=== PATIENT | female | born 1950 | race Caucasian/White ===

== ENCOUNTER 2018-09-06 02:30 | Emergency (ER) | payer OTHER ==
--- OUTSIDE RECORDS SUMMARY | 2018-09-06 02:32 | XMS REPORT ---
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 Problem Sciatica of left side M54.32 Active Problem Sciatica, right side M54.31 Active Problem Unilateral primary osteoarthritis, M17.11 Active right knee Problem Pain, joint, knee, left M25.562 Active Problem Pain, joint, knee, right M25.561 Active Medications Medication Code Code Instructions Start End Status Dosage System Date Date Azelastine HCl [facility] 80036771211 0.1 % Nasal Active not defined Multivitamin [facility] 23232214373 - Orally Active as directed Sucralfate [facility] 74459739197 1 GM Oral Active not defined Bevespi Aerosphere [facility] 87316414930 9-4.8 MCG/ACT Active not Inhalation defined potassium NDC 0 Active not defined Cranberry Soft [facility] 47835-46544 Active not defined Calion Oil [facility] 84757-05929 Active not defined Kfopfgvrid-ZEWT-Hl [facility] 81209459864 50-325-40 MG Active 1 tablet ffeine Orally every 4 as needed hrs Theophylline ER ND 16992699032 300 MG Oral Active not defined Vitamin B Complex [facility] 22424860228 - Orally Active as directed Probiotic [facility] 24993-51304 Active not defined Magnesium NDC 0 Active not defined Vitamin D-3 [facility] 27637-41224 Active not defined Lutein [facility] 37715-97918 Active not defined Atorvastatin [facility] 66383791971 10 MG Oral Active not Calcium defined Levocetirizine [facility] 53467862149 5 MG Oral Active not Dihydrochloride defined Resveratrol [facility] 0 Active not defined Milk Thistle [facility] 87655-90546 Active not defined Triamterene-HCTZ [facility] 20664628888 75-50 MG Oral Active not defined Esomeprazole [facility] 21691441825 40 MG Oral Active not Magnesium defined Fish Oil [facility] [address]-85 Active not defined Calcium Citrate [facility] 94515-04393 Active not defined Garlic-Parsley [facility] 87287-52410 Active not defined Calcium Carbonate [facility] 44061-47297 Active not defined Levalbuterol [facility] 84344269816 45 MCG/ACT Active not Tartrate Inhalation defined Zinc [facility] 05756-83867 Active not defined Vitamin C [facility] 60281-62899 Active not defined Vitamin B 12 [facility] 72495982670 250 MCG Orally Active as directed Co Q 10 [facility] 16534-17860 Active not defined Results No Known Results Summary Purpose eClinicalWorks Submission
--- OUTSIDE RECORDS SUMMARY | 2018-09-06 02:32 | XMS REPORT ---
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 Assessment Unilateral primary osteoarthritis, M17.11 Active right knee Assessment Sciatica, right side M54.31 Active Assessment Pain, joint, knee, right M25.561 Active Problem Unilateral primary osteoarthritis, 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 Problem Sciatica of left side M54.32 Active Problem Sciatica, right side M54.31 Active Problem Unilateral primary osteoarthritis, M17.11 Active right knee Problem Pain, joint, knee, left M25.562 Active Problem Pain, joint, knee, right M25.561 Active Medications Medication Code Code Instructions Start End Status Dosage System Date Date Milk Thistle [facility] [address]86-80659 Active not defined [place] Oil [facility] 85472-59637 Active not defined Cranberry Soft [facility] 51671-32977 Active not defined Vitamin D-3 [facility] 27626-60711 Active not defined Atorvastatin [facility] 45911990340 10 MG Oral Active not Calcium defined Calcium Citrate [facility] 70515-06530 Active not defined Vitamin B 12 [facility] 40034794674 250 MCG Orally Active as directed Resveratrol ND 0 Active not defined Zinc [facility] 66807-45328 Active not defined Triamterene-HCTZ [facility] 21931203078 75-50 MG Oral Active not defined Sucralfate [facility] 63330700448 1 GM Oral Active not defined Levocetirizine [facility] 53549872667 5 MG Oral Active not Dihydrochloride defined Calcium Carbonate [facility] 05015-13128 Active not defined Vitamin B Complex [facility] 02888009776 - Orally Active as directed Fish Oil [facility] [address]-71 Active not defined Garlic-Parsley [facility] 25996-71572 Active not defined potassium ND 0 Active not defined Multivitamin [facility] 01226814206 - Orally Active as directed Co Q 10 [facility] 86208-24366 Active not defined Lutein [facility] 54224-06970 Active not defined Vitamin C [facility] 36[address]-12259 Active not defined Bevespi Aerosphere [facility] 29395453536 9-4.8 MCG/ACT Active not Inhalation defined Probiotic [facility] 43528-28522 Active not defined Theophylline ER [facility] 32547212358 300 MG Oral Active not defined Magnesium ND 0 Active not defined Toxqfrtpob-GUYD-Fv [facility] 32176951983 50-325-40 MG Active 1 tablet ffeine Orally every 4 as needed hrs Levalbuterol [facility] 23264194702 45 MCG/ACT Active not Tartrate Inhalation defined Esomeprazole [facility] 60384649823 40 MG Oral Active not Magnesium defined Azelastine HCl [facility] 40527193882 0.1 % Nasal Active not defined Results No Known Results Summary Purpose eClinicalWorks Submission
--- OUTSIDE RECORDS SUMMARY | 2018-09-06 02:32 | XMS REPORT ---
:1950 [facility] Address [address] [place] [address] [address] [place] [address] Care Team Providers Name Role Phone Unavailable Unavailable Unavailable Problems This patient has no known problems. Allergies, Adverse Reactions, Alerts This patient has no known allergies or adverse reactions. Medications This patient has no known medications.
--- OUTSIDE RECORDS SUMMARY | 2018-09-06 02:33 | XMS REPORT ---
:1950 [facility] Team Providers Name Role Phone [...] Start End Status Dosage System Date Date Multivitamin [facility] 71682100946 - Orally Active as directed Vitamin B Complex [facility] 80036559994 - Orally Active as directed Sucralfate [facility] 26659919308 1 GM Oral Active not defined Levocetirizine [facility] 99913017312 5 MG Oral Active not Dihydrochloride defined Cranberry Soft [facility] 954[address]-89976 Active not defined Fish Oil [facility] [address]-54 Active not defined Resveratrol NDC 0 Active not defined Vitamin B 12 [facility] 56420101163 250 MCG Orally Active as directed Triamterene-HCTZ ND 09425531184 75-50 MG Oral Active not defined Probiotic [facility] 9[address]-98583 Active not defined potassium NDC 0 [place] [address] Active not defined Madeline Oil [facility] 95877-52243 Active not defined Milk Thistle [facility] 51666-14984 Active not defined Azelastine HCl [facility] 84337419897 0.1 % Nasal Active not defined Wedpwzrffi-IISI-Dr [facility] 25031243200 50-325-40 MG Active 1 tablet ffeine Orally every 4 as needed hrs Levalbuterol [facility] 23886727670 45 MCG/ACT Active not Tartrate Inhalation defined Lutein [facility] 12501-56798 Active not defined Atorvastatin [facility] 27343642834 10 MG Oral Active not Calcium defined Theophylline ER [facility] 21810357153 300 MG Oral Active not defined Bevespi Aerosphere [facility] 36363761794 9-4.8 MCG/ACT Active not Inhalation defined Calcium Carbonate [facility] 830[address]-36[address] Active not defined Esomeprazole [facility] 44854899242 40 MG Oral Active not Magnesium defined Vitamin C [facility] 69753-89382 Active not defined Garlic-Parsley [facility] 83382-40064 Active not defined Co Q 10 [facility] 12367-75897 Active not defined Magnesium [facility] 0 Active not defined Calcium Citrate [facility] 43409-77241 Active not defined Vitamin D-3 [facility] 32659-02032 Active not defined Results No Known Results Summary Purpose eClinicalWorks Submission
[2018-09-06] MEDS ORDERED: DIPHENOX/ATROP SULF 1 TAB PO ONE (03:48)
[2018-09-06] MEDS ORDERED: MEPERIDINE HCL 50 MG/ML AMP ONE (03:48)
[2018-09-06] MEDS ORDERED: NA CHLORIDE 0.9% 1,000 ML ONE (03:49)
[2018-09-06] MEDS ORDERED: ONDANSETRON 4 MG/2 ML VIAL ONE (03:51)
[2018-09-06 04:07] LABS: Absolute Lymphocytes (CBC) 0.8 K/uL (0.7-4.9); Absolute Monocytes 0.7 K/uL (0.1-1.3); Absolute Neutrophil 13.6 K/uL (1.8-8.0); Basophils % 0.4 % (0-1.3); Eosinophils % 0.3 % (0-4.4); Hematocrit 42.8 % (36.0-45.0); Lymphocytes % 5.4 % (15.3-44.8); MPV 9.2 fL (7.6-11.3); Monocytes % 4.5 % (3.3-12.3); RBC Red Blood Cell Count 4.66 M/uL (3.86-4.86)
[2018-09-06 04:19] LABS: Albumin 3.6 g/dL (3.4-5.0); Bilirubin Direct 0.2 mg/dL (0-0.2); Bilirubin Total 0.6 mg/dL (0.2-1.0); Potassium 3.8 mmol/L (3.5-5.1); Protein, Total 7.6 g/dL (6.4-8.2)
--- NOTE | 2018-09-06 04:33 | EDPHYS ---
Physician Documentation [facility] Name: Wendi Bose Age: 68 yrs Sex: Female : 1950 Arrival Date: 09/06/2018 Time: 02:32 Bed 6 Private MD: Humphrey Salazar R ED Physician Sean Escobedo HPI: 09/06 03:16 This 68 yrs old Female presents to ER via Ambulatory with complaints of pkl Abdominal Pain, Fast heart rate. 03:16 The patient presents with abdominal pain that is diffuse. Onset: The symptoms/episode pkl began/occurred today. The symptoms do not radiate. Associated signs and symptoms: Pertinent positives: diarrhea, headache, palpitations. Historical: - Allergies: 03:03 No Known Allergies; tl2 - Home Meds: 03:03 atorvastatin oral oral [Active]; levalbuterol HCl inhalation inhalation [Active]; tl2 omeprazole 40 mg Oral cpDR 1 cap once daily [Active]; Triamterene-Hydrochlorothiazid Oral [Active]; Sucralfate Oral [Active]; - PMHx: 03:03 Hypertension; Hyperlipidemia; Asthma; treated for HCV in 2001; tl2 - PSHx: 03:03 Tubal ligation; tl2 - Immunization history:: Adult Immunizations up to date. - Social history:: Smoking status: Patient/guardian denies using tobacco. - Ebola Screening: : No symptoms or risks identified at this time. ROS: 03:16 Eyes: Negative for injury, pain, redness, and discharge, ENT: Negative for injury, pkl pain, and discharge, Neck: Negative for injury, pain, and swelling, Cardiovascular: Negative for chest pain, palpitations, and edema, Respiratory: Negative for shortness of breath, cough, wheezing, and pleuritic chest pain. 03:16 Abdomen/GI: Positive for nausea, diarrhea, abdominal cramps. 03:16 Back: Negative for acute changes. 03:16 : Negative for urinary symptoms. 03:16 MS/extremity: Negative for acute changes. 03:16 Skin: Negative for rash. 03:16 Neuro: Negative for altered mental status. Exam: 03:16 Head/Face: Normocephalic, atraumatic. Eyes: Pupils equal round and reactive to light, pkl extra-ocular motions intact. Lids and lashes normal. Conjunctiva and sclera are non-icteric and not injected. Cornea within normal limits. Periorbital areas with no swelling, redness, or edema. ENT: Nares patent. No nasal discharge, no septal abnormalities noted. Tympanic membranes are normal and external auditory canals are clear. Oropharynx with no redness, swelling, or masses, exudates, or evidence of obstruction, uvula midline. Mucous membranes moist. Neck: Trachea midline, no thyromegaly or masses palpated, and no cervical lymphadenopathy. Supple, full range of motion without nuchal rigidity, or vertebral point tenderness. No Meningismus. Chest/axilla: Normal chest wall appearance and motion. Nontender with no deformity. No lesions are appreciated. Cardiovascular: Regular rate and rhythm with a normal S1 and S2. No gallops, murmurs, or rubs. Normal PMI, no JVD. No pulse deficits. Respiratory: Lungs have equal breath sounds bilaterally, clear to auscultation and percussion. No rales, rhonchi or wheezes noted. No increased work of breathing, no retractions or nasal flaring. 03:16 Abdomen/GI: Bowel sounds: active, Palpation: soft, mild abdominal tenderness, in all quadrants. 03:16 Back: Exam negative for acute changes. 03:16 : Exam negative for acute changes. 03:16 Musculoskeletal/extremity: Exam is negative for acute changes. 03:16 Skin: Exam negative for rash. 03:16 Neuro: Orientation: is normal, Mentation: is normal, Cranial nerves: grossly normal, Motor: is normal. Vital Signs: 03:03 BP 144 / 93; Pulse 115; Resp 18; Temp 98.6(O); Pulse Ox 96% on R/A; Weight 77.11 kg; tl2 Height 5 ft. 0 in. (152.40 cm); Pain 5/10; 04:16 BP 135 / 79; Pulse 99; Resp 18; Pulse Ox 96% on 2 lpm NC; tl2 05:05 BP 135 / 97; Pulse 98; Resp 18; Pulse Ox 97% on R/A; tl2 03:03 Body Mass Index 33.20 (77.11 kg, 152.40 cm) tl2 MDM: 02:35 Patient medically screened. pkl 04:30 Data reviewed: vital signs, nurses notes, lab test result(s). ED course: Patient pkl feeling better. No diarrhea noted in ER. 09/06 03:15 Order name: Basic Metabolic Panel pkl 09/06 03:15 Order name: CBC with Diff pkl 09/06 03:15 Order name: Creatinine for Radiology pkl 09/06 03:15 Order name: Hepatic Function pkl 09/06 03:15 Order name: Lipase pkl 09/06 03:15 Order name: Stool Culture pkl 09/06 04:16 Order name: Creatinine (Radiology Only); Complete Time: 04:24 EDMS 09/06 04:21 Order name: Basic Metabolic Panel; Complete Time: 04:24 EDMS 09/06 04:21 Order name: Liver (Hepatic) Function; Complete Time: 04:24 EDMS 09/06 04:21 Order name: Lipase; Complete Time: 04:24 EDMS 09/06 04:27 Order name: CBC with Automated Diff; Complete Time: 04:27 EDMS 09/06 03:15 Order name: IV Saline Lock; Complete Time: 03:43 pkl 09/06 03:15 Order name: Labs collected and sent; Complete Time: 03:43 pkl Administered Medications: 03:42 Drug: Demerol 50 mg Route: IVP; Site: left antecubital; tl2 04:00 Follow up: Response: No adverse reaction; Pain is decreased tl2 03:42 Drug: Zofran 4 mg Route: IVP; Site: left antecubital; tl2 04:00 Follow up: Response: No adverse reaction; Nausea is decreased tl2 03:42 Not Given (no available): LoMOTIL 2 tabs PO once tl2 03:42 Drug: NS 0.9% 1000 ml Route: IV; Rate: 1 bolus; Site: left antecubital; tl2 05:04 Follow up: IV Status: Completed infusion; IV Intake: 1000ml tl2 03:43 Drug: LoMOTIL 1 tabs Route: PO; tl2 05:04 Follow up: Response: No adverse reaction tl2 05:04 Drug: Cipro 500 mg Route: PO; tl2 05:05 Follow up: Response: No adverse reaction tl2 Disposition: 09/06/18 04:32 Discharged to Home. Impression: Gastroenteritis. Leukocytosis. - Condition is Stable. - Prescriptions for Cipro 500 mg Oral Tablet - take 1 tablet by ORAL route every 12 hours for 5 days; 10 tablet. Zofran 4 mg Oral Tablet - take 1 tablet by ORAL route every 12 hours As needed; 6 tablet. Lomotil 2.5- 0.025 mg Oral Tablet - take 2 tablets by ORAL route once daily As needed; 10 tablet. - Medication Reconciliation Form, Thank You Letter, Antibiotic Education, Prescription Opioid Use form. - Follow up: Humphrey Salazar MD; When: 2 - 3 days; Reason: Re-evaluation by your physician. - Problem is new. - Symptoms have improved. Signatures: Dispatcher [employer] EDCT Sean Escobedo MD MD pkl Isabella Herrera RN RN tl2 Corrections: (The following items were deleted from the chart) 05:07 04:32 09/06/2018 04:32 Discharged to Home. Impression: Gastroenteritis. Leukocytosis. tl2 Condition is Stable. Forms are Medication Reconciliation Form, Thank You Letter, Antibiotic Education, Prescription Opioid Use. Follow up: Humphrey Salazar; When: 2 - 3 days; Reason: Re-evaluation by your physician. Problem is new. Symptoms have improved. pkl
--- NOTE | 2018-09-06 04:33 | ER ---
Nurse's Notes [facility] Name: Wendi Bose Age: 68 yrs Sex: Female : 1950 Arrival Date: 09/06/2018 Time: 02:32 Bed 6 Private MD: Humphrey Salazar R Diagnosis: Gastroenteritis. Leukocytosis Presentation: 09/06 02:59 Presenting complaint: Patient states: I've been feeling bad since about 3 pm, nausea, tl2 palpitations, fever and watery diarrhea. Transition of care: patient was not received from another setting of care. Onset of symptoms was September 05, 2018 at 15:00. Risk Assessment: Do you want to hurt yourself or someone else? Patient reports no desire to harm self or others. Initial Sepsis Screen: Does the patient meet any 2 criteria? HR > 90 bpm. No. Patient's initial sepsis screen is negative. Does the patient have a suspected source of infection? No. Patient's initial sepsis screen is negative. Care prior to arrival: None. 02:59 Method Of Arrival: Ambulatory tl2 02:59 Acuity: ANDREW 3 tl2 Triage Assessment: 03:03 General: Appears in no apparent distress. uncomfortable, Behavior is calm, cooperative, tl2 appropriate for age. Pain: Complains of pain in headache, lower abdomen. Neuro: Level of Consciousness is awake, alert, obeys commands, Oriented to person, place, time, situation. Cardiovascular: Reports nausea, palpitations, Denies chest pain. Respiratory: Airway is patent Respiratory effort is even, unlabored, Respiratory pattern is regular, symmetrical. GI: Reports lower abdominal pain, anorexia, diarrhea, nausea. : No signs and/or symptoms were reported regarding the genitourinary system. Derm: Skin is pink, warm \T\ dry. Historical: - Allergies: 03:03 No Known Allergies; tl2 - Home Meds: 03:03 atorvastatin oral oral [Active]; levalbuterol HCl inhalation inhalation [Active]; tl2 omeprazole 40 mg Oral cpDR 1 cap once daily [Active]; Triamterene-Hydrochlorothiazid Oral [Active]; Sucralfate Oral [Active]; - PMHx: 03:03 Hypertension; Hyperlipidemia; Asthma; treated for HCV in 2001; tl2 - PSHx: 03:03 Tubal ligation; tl2 - Immunization history:: Adult Immunizations up to date. - Social history:: Smoking status: Patient/guardian denies using tobacco. - Ebola Screening: : No symptoms or risks identified at this time. Screenin:07 Abuse screen: Denies threats or abuse. Nutritional screening: No deficits noted. tl2 Tuberculosis screening: No symptoms or risk factors identified. Fall Risk None identified. Assessment: 03:07 General: see triage assessment. tl2 04:16 Reassessment: O2 sat decreased to 88% after Demerol administration, placed on 2 L per tl2 nc, O2 increased to 96% Patient denies pain at this time. Patient states feeling better. 05:05 Reassessment: Patient appears in no apparent distress at this time. Patient and/or tl2 family updated on plan of care and expected duration. Pain level reassessed. Patient is alert, oriented x 3, equal unlabored respirations, skin warm/dry/pink. pt verbalized understanding of discharge instructions, need for follow up and prescription usage Patient states feeling better. Patient states symptoms have improved. Vital Signs: 03:03 BP 144 / 93; Pulse 115; Resp 18; Temp 98.6(O); Pulse Ox 96% on R/A; Weight 77.11 kg; tl2 Height 5 ft. 0 in. (152.40 cm); Pain 5/10; 04:16 BP 135 / 79; Pulse 99; Resp 18; Pulse Ox 96% on 2 lpm NC; tl2 05:05 BP 135 / 97; Pulse 98; Resp 18; Pulse Ox 97% on R/A; tl2 03:03 Body Mass Index 33.20 (77.11 kg, 152.40 cm) tl2 ED Course: 02:32 Patient arrived in ED. am2 02:33 Humphrey Salazar MD is Private Physician. am2 02:35 Sean Escobedo MD is Attending Physician. pkl 03:00 Triage completed. tl2 03:03 Arm band placed on right wrist. tl2 03:07 Patient has correct armband on for positive identification. Placed in gown. Bed in low tl2 position. Call light in reach. Side rails up X2. Adult w/ patient. 03:43 Inserted saline lock: 22 gauge in left antecubital area, using aseptic technique. Blood tl2 collected. placed by Reese, tech. 04:31 Humphrey Salazar MD is Referral Physician. pkl 05:05 No provider procedures requiring assistance completed. IV discontinued, intact, tl2 bleeding controlled, No redness/swelling at site. Pressure dressing applied. Administered Medications: 03:42 Drug: Demerol 50 mg Route: IVP; Site: left antecubital; tl2 04:00 Follow up: Response: No adverse reaction; Pain is decreased tl2 03:42 Drug: Zofran 4 mg Route: IVP; Site: left antecubital; tl2 04:00 Follow up: Response: No adverse reaction; Nausea is decreased tl2 03:42 Not Given (no available): LoMOTIL 2 tabs PO once tl2 03:42 Drug: NS 0.9% 1000 ml Route: IV; Rate: 1 bolus; Site: left antecubital; tl2 05:04 Follow up: IV Status: Completed infusion; IV Intake: 1000ml tl2 03:43 Drug: LoMOTIL 1 tabs Route: PO; tl2 05:04 Follow up: Response: No adverse reaction tl2 05:04 Drug: Cipro 500 mg Route: PO; tl2 05:05 Follow up: Response: No adverse reaction tl2 Intake: 05:04 IV: 1000ml; Total: 1000ml. tl2 Outcome: 04:32 Discharge ordered by . pkl 05:05 Discharged to home ambulatory, with family. tl2 05:05 Condition: stable 05:05 Discharge instructions given to patient, family, Instructed on discharge instructions, follow up and referral plans. medication usage, Demonstrated understanding of instructions, follow-up care, medications, Prescriptions given X 3. 05:07 Patient left the ED. tl2 Signatures: Sean Escobedo MD MD pkl Isabella Herrera, RN RN tl2 Lisa Mcintosh
[2018-09-06] MEDS ORDERED: CIPROFLOXACIN HCL 500 MG TAB ONE (05:08)
== END 2018-09-06 05:07 | disposition home or self-care (01) ==
LOC: ER 02:30
DX: K52.9 Noninfective gastroenteritis and colitis, unspecified (principal); D72.829 Elevated white blood cell count, unspecified; I10 Essential (primary) hypertension; E78.5 Hyperlipidemia, unspecified; J45.909 Unspecified asthma, uncomplicated
CPT/HCPCS: 96361; 85025; 80048; 36415; 80076; 83690; 96375; 96374; 99284; J2175; J7030; J2405